=== PATIENT | female | born 1950 | race Caucasian/White ===

== ENCOUNTER 2016-07-29 22:01 | Emergency (ER) | payer MEDICARE ==
[2016-07-29] MEDS ORDERED: ULTRAM 50 MG PO ONE (22:52)
--- NOTE | 2016-07-29 22:55 | ERPHSYRPT ---
- History of Present Illness Time Seen by Provider: 07/29/16 22:47 Source: patient Exam Limitations: no limitations Patient Subjective Stated Complaint: Pt sts that she was pushing trash can approx 1400 today and fell landing on wrists. Sts left wrist bent under her. Pt sts took tylenol at 1400 and naproxen at 2000. Sts pain 10/28. Sts has been icing it off and on. Triage Nursing Assessment: Pt alert, oriented, answers all questions appropriatley. Skin p/w/d, resps non-labored. Pt ambulatory to tx room, steady gait noted. Pt with decreased ROM and radiological health specialist strength left hand. Pt with + radial pulse. Pt with cap refill less than 3 seconds. + swelling noted to distal forearm. Physician History: ABOUT 9 HOURS AGO AT HER SON'S HOME PT WAS PUSHING A TRASH CONTAINER AND FELL ON HER LEFT WRIST WITH RESULTANT PAIN AND SWELLING OF THE LEFT WRIST; DENIES PREVIOUS INJURY TO THE LEFT WRIST; DENIES NUMBNESS OF THE LEFT HAND DIGITS. Allergies/Adverse Reactions: acetaminophen [From Percocet] Adverse Reaction (Verified 07/29/16 23:03) vomiting morphine Adverse Reaction (Verified 07/29/16 23:03) vomiting oxycodone [From Percocet] Adverse Reaction (Verified 07/29/16 23:03) vomiting Home Medications: Amlodipine Besylate [Norvasc] 5 mg PO DAILY 07/29/16 [History] Aspirin EC 325 mg [Ecotrin 325 MG] 325 mg PO DAILY 07/29/16 [History] Atorvastatin Calcium [Lipitor 20MG Tablet] 20 mg PO DAILY 07/29/16 [History] Levothyroxine Sodium 100 Mcg [Synthroid 100 Mcg] 100 mcg PO DAILY 07/29/16 [History] Lisinopril 5 mg PO DAILY 07/29/16 [History] Immunizations Up to Date: Yes - Review of Systems Musculoskeletal: Joint Pain (LEFT WRIST PAIN) - Past Medical History Pertinent Past Medical History: Yes Cardiac History: Hypertension Endocrine Medical History: Hypothyroidism Other Medical History: high cholesterol - Social History Smoking Status: Never smoker Exposure to second hand smoke: No Drug Use: none Patient Lives Alone: No - Nursing Vital Signs Nursing Vital Signs: Initial Vital Signs Pulse Rate 102 Respiratory Rate 16 Blood Pressure [] 145/89 Pain Intensity 7 - Physical Exam General Appearance: alert Shoulder Exam: normal ROM Elbow/Forearm Exam: normal ROM Wrist Exam: limited ROM (LEFT WRIST HAS LIMITED ROM WITH MILD TENDERNESS AND EDEMA) Hand Exam: normal ROM Neuro/Tendon Exam: normal sensation Mental Status Exam: alert, cooperative Skin Exam: warm, dry SpO2 Interpretation: normal SpO2: 96 Oxygen Delivery: Room Air Procedures - Splinting Location of Splint: Left, Wrist Type of Splint: Orthoglass Short Arm Splint Splint Applied By: Other (ED EMT) Pre-Proc Neuro Vasc Exam: normal Post-Proc Neuro Vasc Exam: neurovascular intact - Course Nursing assessment & vital signs reviewed: Yes - Radiology Exams Left Wrist X-ray Interpretation: Interpreted by me (FX DISTAL LEFT RADIUS) Ordered Tests: Active Orders 24 hr Category Date Time Status WRIST (MIN 3 VIEWS) Stat Exams 07/29/16 22:51 Taken Medication Summary Discontinued Medications Generic Name Dose Route Start Last Admin Trade Name Freq PRN Reason Stop Dose Admin Tramadol HCl 50 mg 07/29/16 22:52 07/29/16 23:11 Ultram 50 Mg PO 07/29/16 22:53 50 mg STAT ONE Administration Tramadol HCl Confirm 07/29/16 23:09 Ultram 50 Mg Administered 07/29/16 23:10 Dose 50 mg .ROUTE .STK-MED ONE - Progress Discussed with Dr.: Other (SPOKE WITH DR MENON(ORTHOPEDIC SURGEON)([id number]) WHO WILL SEE PT AT [facility] TOMORROW MORNING 8 AM.) - Departure Time of Disposition: 23:55 Departure Disposition: Home Clinical Impression: FRACTURED DISTAL LEFT RADIUS Condition: Fair Critical Care Time: No Referrals: JONATAN HERNANDEZ FIELD TRAINER [Primary Care Provider] - Instructions: Wrist Fracture Additional Instructions: ELEVATE LEFT WRIST ABOVE HEART LEVEL. WEAR LEFT WRIST SPLINT UNTIL DR MENON(ORTHOPEDIC SURGEON) IS SEEN TOMORROW MORNING AT 8 AM AT THE [facility]([phone]) WEAR LEFT ARM SLING FOR COMFORT. Prescriptions: Tramadol HCl 50 mg [Ultram 50 mg] 50 mg PO Q4H PRN PRN #20 tablet PRN Reason: Pain
[2016-07-29] MEDS ORDERED: ULTRAM 50 MG ONE (23:09)
[2016-07-30 00:04] VITALS: BP 129/70; PULSE 84; O2SAT 100
--- NOTE | 2016-07-30 08:56 | XRAY ---
Indication: Pain following fall. Comparison: None 3 views of the left wrist demonstrates nondisplaced impacted fracture involving the distal radius with intra-articular extension and soft tissue swelling. Mild osteopenia. No other bony, articular, or soft tissue abnormalities.
== END 2016-07-30 00:04 | disposition home or self-care (01) ==
LOC: ED 22:01
PROC: 2W3DX1Z Immobilization of Left Lower Arm using Splint (ICD-10-PCS; principal; 2016-07-29)
DX: S52.502A Unspecified fracture of the lower end of left radius, initial encounter for closed fracture (principal); W00.0XXA Fall on same level due to ice and snow, initial encounter; I10 Essential (primary) hypertension; E78.00 Pure hypercholesterolemia, unspecified; Z79.899 Other long term (current) drug therapy
CPT/HCPCS: 29126; 73110; 99283; A9270-GY